=== PATIENT | female | born 1960 | race Caucasian/White ===

== ENCOUNTER 2018-06-16 15:48 | Emergency (ER) | payer OTHER ==
[~2018-06-16] VITALS: Ht 172.7 cm; Wt 90.0 kg
[2018-06-16 16:56] LABS: BASOPHIL (%) 0.8 % (0-1); BASOPHIL COUNT 0.1 K/uL (0-0.1); EOSINOPHIL (%) 0.2 % (0-5); HEMATOCRIT 39.7 % (36.0-46.0); HEMOGLOBIN 14.4 G/DL (11.9-15.5); IMMATURE GRANULOCYTE (%) 0.9 % (0.0-0.7); LYMPHOCYTE (%) 13.3 % (15-42); LYMPHOCYTE COUNT 0.9 K/uL (1.0-2.8); MCH 36.7 PG (29.0-34.0); MCHC 36.3 G/DL (30.0-36.0); MCV 101.3 FL (83-99); MONOCYTE (%) 10.7 % (3-12); MONOCYTE COUNT 0.7 K/uL (0-0.8); NEUTROPHIL (%) 74.1 % (45-76); NEUTROPHIL COUNT 4.8 K/uL (1.8-6.4); PLATELET COUNT 179 K/uL (156-360); RBC DIS.WIDTH-CV 12.4 % (11.8-14.6); RBC DIS.WIDTH-SD 46.4 % (39-53); RED BLOOD COUNT 3.92 M/uL (3.80-5.20); WHITE BLOOD COUNT 6.5 K/uL (4.1-10.2)
[2018-06-16 17:05] LABS: CHLORIDE 92 mEq/L (99-109); POTASSIUM 3.6 mEq/L (3.7-5.4); SODIUM 133 mEq/L (136-147)
[2018-06-16 17:06] LABS: PTT 23.2 SEC (25-37)
[2018-06-16 17:07] LABS: GLUCOSE 140 mg/dL (70-99)
[2018-06-16 17:11] LABS: CREATININE 0.7 mg/dL (0.6-1.3); GFR ESTIMATE (CALCULATED) > 59 mL/min/
[2018-06-16 17:12] LABS: UREA NITROGEN (BUN) 9 mg/dL (9-23)
[2018-06-16 17:17] LABS: TROP-I INTERPRETATION NEGATIVE; TROPONIN-I 0.02 ng/mL (0.0-0.30)
[2018-06-16 21:33] VITALS: BP 180/86
== END 2018-06-16 21:34 | disposition home or self-care (01) ==
LOC: EME 15:48
PROVIDERS: Emergency Medicine
DX: G62.9 Polyneuropathy, unspecified (principal); I10 Essential (primary) hypertension; Z88.0 Allergy status to penicillin
CPT/HCPCS: 70450; 80048; 83880; 84484; 85025; 85610; 85730; 93005; 99281; 99285

== ENCOUNTER 2018-06-18 08:55 | Observation (INO) | payer OTHER ==
[~2018-06-18] VITALS: Ht 172.7 cm; Wt 79.4 kg
[2018-06-18 09:45] LABS: BASOPHIL (%) 0.4 % (0-1); EOSINOPHIL (%) 0.6 % (0-5); HEMATOCRIT 40.8 % (36.0-46.0); HEMOGLOBIN 14.5 G/DL (11.9-15.5); IMMATURE GRANULOCYTE (%) 0.4 % (0.0-0.7); LYMPHOCYTE (%) 20.8 % (15-42); LYMPHOCYTE COUNT 1.1 K/uL (1.0-2.8); MCH 36.3 PG (29.0-34.0); MCHC 35.5 G/DL (30.0-36.0); MCV 102.3 FL (83-99); MONOCYTE (%) 10.1 % (3-12); MONOCYTE COUNT 0.5 K/uL (0-0.8); NEUTROPHIL (%) 67.7 % (45-76); NEUTROPHIL COUNT 3.4 K/uL (1.8-6.4); PLATELET COUNT 190 K/uL (156-360); RBC DIS.WIDTH-CV 12.5 % (11.8-14.6); RBC DIS.WIDTH-SD 47.4 % (39-53); RED BLOOD COUNT 3.99 M/uL (3.80-5.20); WHITE BLOOD COUNT 5.1 K/uL (4.1-10.2)
[2018-06-18 09:55] LABS: CHLORIDE 92 mEq/L (99-109); POTASSIUM 3.6 mEq/L (3.7-5.4); SODIUM 133 mEq/L (136-147)
[2018-06-18 09:57] LABS: GLUCOSE 108 mg/dL (70-99)
[2018-06-18 09:58] LABS: TOTAL PROTEIN 7.1 g/dL (6.4-8.3)
[2018-06-18 09:59] LABS: TOTAL BILIRUBIN 1.5 mg/dL (0.0-1.0)
[2018-06-18 10:01] LABS: ALKALINE PHOSPHATASE 152 IU/L (3-129); CREATININE 0.7 mg/dL (0.6-1.3); GFR ESTIMATE (CALCULATED) > 59 mL/min/
[2018-06-18 10:02] LABS: UREA NITROGEN (BUN) 18 mg/dL (9-23)
[2018-06-18 10:03] LABS: AST (GOT) 131 IU/L (2-34)
[2018-06-18 10:04] LABS: ALT (GPT) 147 IU/L (3-49); CREATINE KINASE 37 IU/L (1-294); TOTAL CK 37 IU/L (1-294)
[2018-06-18 10:10] LABS: CK-MB 1.6 ng/mL (0.0-4.9); CKMB RELATIVE INDEX 4.3 (0.0-3.9)
[2018-06-18 12:25] LABS: MAGNESIUM 1.9 mg/dL (1.3-2.7)
[2018-06-18] MEDS ORDERED: ASPIR-LOW81 MG PO ×2 (12:37→12:38)
[2018-06-18] MEDS ORDERED: TOPROL XL100 MG PO (12:40)
[2018-06-18] MEDS ORDERED: OLMESARTAN-HCT1 EACH PO (12:40)
[2018-06-18 12:48] LABS: APPEARANCE CLEAR ((CLEAR)); BILIRUBIN SMALL; BLOOD NEGATIVE; COLOR AMBER ((YELLOW)); GLUCOSE (STRIP) NEGATIVE; KETONES 20; LEUKOCYTES NEGATIVE; NITRITE NEGATIVE; PROTEIN (STRIP) 30; SPECIFIC GRAVITY 1.026 (1.000-1.030)
[2018-06-18 13:37] VITALS: BP 181/80
[2018-06-18 13:46] LABS: FOLIC ACID (FOLATE) 8.4 NG/ML (5.0-22.0)
[2018-06-18 20:12] VITALS: BP 210/93
[2018-06-18 23:57] VITALS: BP 144/77
[2018-06-19 04:48] VITALS: BP 118/55
[2018-06-19 06:02] LABS: MCH 35.9 PG (29.0-34.0); MCHC 34.7 G/DL (30.0-36.0); MCV 103.3 FL (83-99); PLATELET COUNT 163 K/uL (156-360); RBC DIS.WIDTH-CV 12.6 % (11.8-14.6); RBC DIS.WIDTH-SD 47.1 % (39-53); RED BLOOD COUNT 3.29 M/uL (3.80-5.20); WHITE BLOOD COUNT 5.1 K/uL (4.1-10.2)
[2018-06-19 06:04] LABS: ALBUMIN 2.9 G/DL (3.2-4.8); ALKALINE PHOSPHATASE 91 IU/L (3-129); ALT (GPT) 89 IU/L (3-49); AST (GOT) 80 IU/L (2-34); CHLORIDE 96 MEQ/L (99-109); CREATININE 0.7 MG/DL (0.6-1.3); DIRECT BILIRUBIN 0.3 mg/dL (0.0-0.3); GFR ESTIMATE (CALCULATED) > 59 mL/min/; GLUCOSE 95 mg/dL (70-99); HEMOGLOBIN 11.8 G/DL (11.9-15.5); POTASSIUM 3.1 MEQ/L (3.7-5.4); SODIUM 135 MEQ/L (136-147); TOTAL BILIRUBIN 0.9 MG/DL (0.0-1.0); TOTAL PROTEIN 4.9 G/DL (6.4-8.3); UREA NITROGEN (BUN) 15 mg/dL (9-23)
[2018-06-19 08:00] VITALS: BP 102/56
[2018-06-19 10:35] LABS: TREPONEMA ANTIBODY NEGATIVE (NEGATIVE)
[2018-06-19 11:52] VITALS: BP 124/60
[2018-06-19 14:02] LABS: CHLORIDE 99 mEq/L (99-109); POTASSIUM 3.7 mEq/L (3.7-5.4); SODIUM 134 mEq/L (136-147)
[2018-06-19 14:03] LABS: GLUCOSE 85 mg/dL (70-99)
[2018-06-19 14:07] LABS: CREATININE 0.7 mg/dL (0.6-1.3); GFR ESTIMATE (CALCULATED) > 59 mL/min/
[2018-06-19 14:08] LABS: UREA NITROGEN (BUN) 15 mg/dL (9-23)
[2018-06-19 19:37] VITALS: BP 126/60
[2018-06-19 23:31] VITALS: BP 126/74
[2018-06-20 04:15] VITALS: BP 135/69
[2018-06-20 07:59] VITALS: BP 125/73
[2018-06-20 11:30] VITALS: BP 125/57
[2018-06-20 15:33] VITALS: BP 127/61
[2018-06-20 20:07] VITALS: BP 118/72
[2018-06-21] VITALS (7 sets, daily range): BP systolic 118–159; BP diastolic 57–72
[2018-06-22 04:00] VITALS: BP 132/78
[2018-06-22 07:49] VITALS: BP 115/64
[2018-06-22] MEDS ORDERED: LOSARTAN POTASS50 MG PO (11:23)
[2018-06-22] MEDS ORDERED: LOPRESSOR25 MG PO (11:23)
[2018-06-22] MEDS ORDERED: AMLODIPINE BESYL5 MG PO (11:23)
[2018-06-22] MEDS ORDERED: THERAGRAN1 TABLET PO (11:24)
[2018-06-22] MEDS ORDERED: GABAPENTIN100 MG PO (11:24)
[2018-06-22] MEDS ORDERED: Thiamine,Vitamin B1 PO (11:24)
[2018-06-22] MEDS ORDERED: FOLIC ACID1 MG PO (11:24)
[2018-06-22 12:19] VITALS: BP 126/60
[2018-06-22 15:52] VITALS: BP 124/63
== END 2018-06-22 20:03 ==
LOC: EME 08:55 → EDOF 11:57 → 4SOUTH 11:57 → ENRESERV 12:02 → 4SOUTH 13:29
PROVIDERS: Emergency Medicine; Hospitalist
DX: E51.2 Wernicke's encephalopathy (principal); I67.4 Hypertensive encephalopathy; I10 Essential (primary) hypertension; F10.20 Alcohol dependence, uncomplicated; E11.41 Type 2 diabetes mellitus with diabetic mononeuropathy; F41.9 Anxiety disorder, unspecified; E78.5 Hyperlipidemia, unspecified; Z90.49 Acquired absence of other specified parts of digestive tract; R79.89 Other specified abnormal findings of blood chemistry; Z79.82 Long term (current) use of aspirin; Z91.14 Patient's other noncompliance with medication regimen; R29.6 Repeated falls; Z88.0 Allergy status to penicillin; Z83.3 Family history of diabetes mellitus
CPT/HCPCS: 70450; 70551; 71045; 76705; 80048; 80048 91; 80053; 80076; 81003; 82140; 82550; 82553; 82607; 82746; 82948; 83036; 83735; 84425 90; 85025; 85027; 86780; 93005; 97530 GP; 99281; 99285; G0378; G8978 GP CM; G8979 GP CM; G8980 GP CM; G8987 GO CM; G8988 GO CL; J1644; J3411; J3480; J7030